=== PATIENT | male | born 1960 | race Caucasian/White ===

== ENCOUNTER 2020-10-24 15:47 | Emergency (ER) | payer OTHER ==
[2020-10-24 16:31] LABS: HEMOGLOBIN 14.8 gm/dl (14.0-17.5); RED BLOOD COUNT 4.97 M/UL (4.20-5.50); WHITE BLOOD COUNT 7.3 K/UL (4.5-11.0)
[2020-10-24] MEDS ORDERED: NAPROSYN EC 50500 MG GT (21:58)
[2020-10-24] MEDS ORDERED: PREDNISONE20 MG PO (21:58)
[2020-10-24] MEDS ORDERED: PROVENTIL HFA6.7 GM INH (21:58)
== END 2020-10-24 22:26 | disposition home or self-care (01) ==
LOC: ER1 15:47
PROVIDERS: Emergency Medicine
DX: J44.9 Chronic obstructive pulmonary disease, unspecified (principal); R10.9 Unspecified abdominal pain; F17.200 Nicotine dependence, unspecified, uncomplicated
CPT/HCPCS: 80053; 81001; 82550; 82553; 83605; 83690; 83874; 84484; 85025; 85379; 93005; 94640; 94664; 96374; 96375; 99284; J1885; J2270; J2405; Q9967